=== PATIENT | female | born 1950 | race Caucasian/White ===

== ENCOUNTER 2021-09-02 16:38 | Inpatient (IN) | payer MEDICARE, OTHER ==
[~2021-09-02] VITALS: Ht 154.9 cm; Wt 66.7 kg
[2021-09-02] MEDS ORDERED: IV NORMAL SALINE 1000 ML BAG IV ONE (17:00)
[2021-09-02] MEDS ORDERED: VALS160T2 PO (17:09)
[2021-09-02] MEDS ORDERED: LORA-258 PO (17:09)
[2021-09-02] MEDS ORDERED: CLOP75TA15 PO (17:09)
[2021-09-02] MEDS ORDERED: OMEP40CA21 PO (17:09)
[2021-09-02] MEDS ORDERED: PITA2TAB PO (17:09)
[2021-09-02 17:25] LABS: ABG BASE EXCESS -8.7 mmol/L; ABG HCO3 17.8 mmol/L; ABG PCO2 40.7 mmHg (35.0-45.0); ABG PH 7.259 (7.350-7.450); ABG PO2 20.9 mmHg (75.0-100.0); ABG SITE RIGHT BRACHIAL; ABG TOTAL HEMOGLOBIN 9.7 G/dL (12.0-16.0); COHb 0.3 % (0.5-1.5); O2Hb 25.5 % (94.0-97.0); VENT MODE Room Air
[2021-09-02 17:25] LABS: MEAN CORPUSCULAR HEMOGLOBIN 24.8 uug (24.7-32.8); MEAN CORPUSCULAR VOLUME 76.4 fL (75.5-95.3); PLATELET COUNT (AUTO) 250 K/uL (179-408)
[2021-09-02 17:33] LABS: CARBON DIOXIDE 25 mmol/L (21-32); CHLORIDE 105 mmol/L (98-107); GLUCOSE 277 mg/dL (74-106); POTASSIUM 3.7 mmol/L (3.5-5.1); UREA NITROGEN, BLOOD 17 mg/dL (7-18)
[2021-09-02 18:18] LABS: *BILIRUBIN,URIN NEGATIVE (NEGATIVE); *BLOOD, URINE NEGATIVE (NEGATIVE); *CLARITY,URINE CLEAR (CLEAR); *COLOR,URINE YELLOW (YELLOW); *KETONES,URINE NEGATIVE (NEGATIVE); *UROBILINOGEN,URINE 0.2 E.U./dl (NORMAL); LEUKOCYTE ESTERASE ,URINE NEGATIVE (NEGATIVE); NITRITE, URINE NEGATIVE (NEGATIVE); PH,URINE 5.5 (5.0-8.0); UGLUCOSE 2+ (NEGATIVE)
[2021-09-02] MEDS ORDERED: LORAZEPAM 2 MG/1 ML VIAL ONE (18:33)
--- NOTE | 2021-09-02 18:44 | NUR ---
PT IS IN ROOM #3. DR JENKINS EVALUATED THE PT.
[2021-09-02] MEDS ORDERED: LORAZEPAM 2 MG/1 ML VIAL IV ONE (18:45)
--- NOTE | 2021-09-02 19:05 | NUR ---
Placed a call to [employer] for admin.
--- NOTE | 2021-09-02 19:32 | NUR ---
call to saadia esquivelclerical warehouseman as there is no charge nurse on the third floor she states she will call me back for a bed assignment.
[2021-09-02] MEDS ORDERED: LORAZEPAM 2 MG/1 ML VIAL IV PRN (20:30)
[2021-09-02] MEDS ORDERED: MORPHINE SULFATE 2 MG/1 ML DISP.SYRIN IV PRN (20:30)
[2021-09-02] MEDS ORDERED: MAGNESIUM HYDROXIDE 30 ML LIQUID UDC PO PRN (20:30)
[2021-09-02] MEDS ORDERED: ONDANSETRON 4 MG/2 ML VIAL IV PRN (20:30)
[2021-09-02] MEDS ORDERED: ALBUTEROL SULFATE 2.5 MG/3 ML NEBU NEB PRN (20:30)
--- NOTE | 2021-09-02 20:30 | NUR ---
pt taken to nuclear medicine for scan.
--- NOTE | 2021-09-02 20:53 | NUR ---
report was given to Mana on the third floor pt will go to room 316.
--- NOTE | 2021-09-02 21:04 | NUR ---
pt returned from nuclear medicine.
--- NOTE | 2021-09-02 21:36 | NUR ---
pt was transported to [facility] via gourney with all belongings pt was able to ambulated from the gourney to the bed. JEANE Adair in room to accept the pt.
[2021-09-02] MEDS ORDERED: PIPERACILLIN SODIUM/TAZOBACTAM 3.375 G in IV DEXTROSE 5% 50 ML IV SCH (22:00)
--- NOTE | 2021-09-02 22:00 | NUR ---
RECEIVED PT VIA GUROZZIE ASSISTED BY RN. S/P JOSH BREAST RECONSTRUCTION TODAY. ADMITTED TO TELE WITH DX OF RESPIRATORY DISTRESS. AAO X 4. ON 02 AT 2LPM/NC SATING AT 97%. NO SOB NOTED. DENIES ANY PAIN. 2 MERON DRAINS ATTACHED ON HER LEFT AND RIGHT CHEST. DRAINING SEROSANGUINOUS. ABLE TO AMBULATE TO BATHROOM WITH ASSIST. IV SITE ON R AC 18G INTACT AND PATENT. ALL BELONGINGS CHECKED AND DOCUMENTED. SAFETY PRECAUTIONS OBSERVED. ALL NEEDS ATTENDED. WILL CONTINUE TO MONITOR.
[2021-09-02 22:14] VITALS: BP 99/46
[2021-09-02] MEDS ORDERED: PIPERACILLIN/TAZOBACTAM/D5W 50 ML ONE ×2 (23:00→23:01)
[2021-09-02] MEDS: PIPERACILLIN/TAZO 2.25 G in IV DEXTROSE 5% 50 ML IV SCH (23:41)
[2021-09-03] VITALS (7 sets, daily range): BP systolic 82–138; BP diastolic 40–91
[2021-09-03] MEDS ORDERED: DOCUSATE SODIUM 100 MG CAPSULE PO ONE
[2021-09-03] MEDS: PIPERACILLIN/TAZO 2.25 G in IV DEXTROSE 5% 50 ML IV SCH (05:07)
[2021-09-03 06:57] LABS: HEMATOCRIT 27.1 % (31.2-41.9); MEAN CORPUSCULAR HEMOGLOBIN 24.8 uug (24.7-32.8); PLATELET COUNT (AUTO) 223 K/uL (179-408)
[2021-09-03 07:18] LABS: ALANINE AMINOTRANSFERASE 15 U/L (14-59); ALKALINE PHOSPHATASE 38 U/L (50-136); ASPARTATE AMINOTRANSFERASE 13 U/L (15-37); BILIRUBIN,TOTAL 0.4 mg/dL (0.2-1.0); CARBON DIOXIDE 24 mmol/L (21-32); CHLORIDE 103 mmol/L (98-107); CHOLESTEROL 144 mg/dL (<200); CREATININE 0.9 mg/dL (0.6-1.3); GLUCOSE 180 mg/dL (74-106); HDL CHOLESTEROL 36 mg/dL (40-60); MAGNESIUM 1.8 mg/dL (1.8-2.4); PHOSPHOROUS 4.1 mg/dL (2.5-4.9); POTASSIUM 4.4 mmol/L (3.5-5.1); TOTAL PROTEIN, SERUM 5.3 g/dL (6.4-8.2); TRIGLYCERIDES 139 MG/DL (30-150); UREA NITROGEN, BLOOD 19 mg/dL (7-18)
[2021-09-03 07:23] LABS: IRON, SERUM 22 ug/dL (50-175)
[2021-09-03 07:29] LABS: THYROID STIMULATING HORMONE 0.515 mIU/mL (0.358-3.740)
[2021-09-03] MEDS: PANTOPRAZOLE SODIUM 40 MG TABLET.DR PO SCH (07:34)
[2021-09-03] MEDS ORDERED: BLOOD SUGAR DIAGNOSTIC 1 EACH STRIP VI ONE (08:45)
[2021-09-03] MEDS: CLOPIDOGREL 75 MG TABLET PO SCH (09:17)
[2021-09-03] MEDS: ACETAMINOPHEN 325 MG TABLET PO PRN ×2 (09:18→17:59)
[2021-09-03] MEDS ORDERED: IV NS 1000 ML 1,000 ML IV ONE (12:45)
[2021-09-03] MEDS: PIPERACILLIN SODIUM/TAZOBACTAM 3.375 G in IV DEXTROSE 5% 100 ML IV SCH ×2 (13:37→22:48)
[2021-09-03] MEDS ORDERED: DOCUSATE SODIUM 100 MG CAPSULE PO SCH (21:00)
--- NOTE | 2021-09-03 21:10 | NUR ---
Pt in room air. No SOB or respiratory distress noted. Able to ambulate to bathroom. No complaints of pain. Safety precautions maintained. All needs attended. Will continue to monitor.
[2021-09-04 00:20] VITALS: BP 99/47
[2021-09-04 04:51] VITALS: BP 117/50
[2021-09-04] MEDS: PIPERACILLIN SODIUM/TAZOBACTAM 3.375 G in IV DEXTROSE 5% 100 ML IV SCH ×2 (06:00→07:43)
[2021-09-04] MEDS: PANTOPRAZOLE SODIUM 40 MG TABLET.DR PO SCH (06:08)
--- NOTE | 2021-09-04 06:22 | NUR ---
Pt refused scheduled antibiotic for 0600. Pt doesn't want to take anymore antibiotic. Will endorse to incoming shift.
[2021-09-04 06:45] LABS: HEMATOCRIT 23.9 % (31.2-41.9); MEAN CORPUSCULAR VOLUME 75.7 fL (75.5-95.3); PLATELET COUNT (AUTO) 217 K/uL (179-408)
[2021-09-04 07:06] LABS: CREATININE 0.8 mg/dL (0.6-1.3); MAGNESIUM 1.8 mg/dL (1.8-2.4); PHOSPHOROUS 2.6 mg/dL (2.5-4.9); POTASSIUM 3.7 mmol/L (3.5-5.1)
[2021-09-04] MEDS: CLOPIDOGREL 75 MG TABLET PO SCH (08:36)
[2021-09-04 12:00] VITALS: BP 139/51
--- NOTE | 2021-09-04 12:45 | NUR ---
Patient is discharged with stable condition via private car with the . no bleeding noted to the incision site, dressing intact. MERON drain intact. All needs attended. belonging list signed. Discharge instructions given with understanding noted. Stable condition no distress identified.
== END 2021-09-04 12:45 | disposition home or self-care (01) | DRG 640 ==
LOC: ER 16:43 → TELE3 21:04 → MEDSURG3 09-04 08:31
PROVIDERS: ADMIT Internal Medicine; ATTEND Nurse Practitioner Acute Care
DX: E86.0 Dehydration (principal); I21.4 Non-ST elevation (NSTEMI) myocardial infarction; N17.9 Acute kidney failure, unspecified; R55 Syncope and collapse; T41.45XA Adverse effect of unspecified anesthetic, initial encounter; Y83.4 Other reconstructive surgery as the cause of abnormal reaction of the patient, or of later complication, without mention of misadventure at the time of the procedure; Y92.530 Ambulatory surgery center as the place of occurrence of the external cause; E87.1 Hypo-osmolality and hyponatremia; R09.02 Hypoxemia; C50.919 Malignant neoplasm of unspecified site of unspecified female breast; Z79.02 Long term (current) use of antithrombotics/antiplatelets; I25.10 Atherosclerotic heart disease of native coronary artery without angina pectoris; D72.828 Other elevated white blood cell count; Z20.822 Contact with and (suspected) exposure to COVID-19; Z95.5 Presence of coronary angioplasty implant and graft; Z90.13 Acquired absence of bilateral breasts and nipples; I10 Essential (primary) hypertension; E86.1 Hypovolemia; E11.65 Type 2 diabetes mellitus with hyperglycemia; Z92.3 Personal history of irradiation; Z85.3 Personal history of malignant neoplasm of breast; Z91.041 Radiographic dye allergy status
CPT/HCPCS: 36415; 36600; 71045; 78580; 83550; 83735; 84100; 84443; 84484; 85025; 93005; 97161; A4663; A9540; G0378; J2060; J2543; J7040; U0003